=== PATIENT | female | born 1990 | race Caucasian/White ===

== ENCOUNTER 2023-04-24 20:00 | Emergency (ER) | payer BC, MEDICAID ==
[2023-04-24] MEDS ORDERED: Acetaminophen/HYDROcodone 325-5 MG Tab PO ONE (20:01)
[2023-04-24] MEDS ORDERED: Ketorolac 30 MG/ML SDV IM ONE (20:27)
[2023-04-24] MEDS ORDERED: hydrOXYzine HCl 50 MG/ML SDV IM ONE (20:27)
[2023-04-24 20:45] LABS: BILIRUBIN,URINE NEGATIVE (NEGATIVE); GLUCOSE,URINE NORMAL (NORMAL); KETONES,URINE NEGATIVE (NEGATIVE); LEUKOCYTE ESTERASE,URINE NEGATIVE (NEGATIVE); NITRITE,URINE NEGATIVE (NEGATIVE); OCCULT BLOOD,URINE NEGATIVE (NEGATIVE); PROTEIN,URINE NEGATIVE (NEGATIVE); UROBILINOGEN,URINE NORMAL (NEGATIVE)
[2023-04-24 20:56] LABS: BASOPHILS PERCENT AUTO 0.3 % (0.2-1.5); HEMATOCRIT 37.1 % (34.2-48.2); HEMOGLOBIN 12.3 g/dL (11.4-15.5); LYMPHOCYTES ABSOLUTE AUTO 1.4 x10-3/uL (1.0-4.4); LYMPHOCYTES PERCENT AUTO 22.4 % (18.4-52.1); MEAN CORPUSCULAR HGB CONC 33.2 g/dL (31.9-34.8); MEAN CORPUSCULAR VOLUME 75.1 fL (76.7-100.5); MEAN PLATELET VOLUME 6.9 fL (7.1-12.4); MONOCYTES ABSOLUTE AUTO 0.3 x10-3/uL (0.3-1.0); MONOCYTES PERCENT AUTO 5.6 % (4.4-15.7); NEUTROPHILS ABSOLUTE AUTO 4.4 x10-3/uL (1.5-6.3); NEUTROPHILS PERCENT AUTO 71.7 % (30.8-76.2); PLATELET COUNT,PLT 284 x10(3)uL (151-488); RED BLOOD CELL COUNT 4.94 x10(6)uL (3.60-5.20); RED CELL DISTRIBUTION WIDTH 16.5 % (12.3-16.5); WHITE BLOOD CELL COUNT,WBC 6.1 x10-3/uL (3.0-10.3)
[2023-04-24 20:57] LABS: APPEARANCE,URINE CLEAR (CLEAR); BACTERIA,URINE RARE (NS); COLOR,URINE YELLOW (YELLOW); RBC,URINE 0-5 (0-5); SQUAMOUS EPITHELIAL CELLS,UR OCCASIONAL (NS,R,O); WBC,URINE 0-5 (0-5)
[2023-04-24 20:57] LABS: BLOOD UREA NITROGEN,BUN 18 mg/dL (7-18); CALCIUM 9.1 mg/dL (8.6-10.2); CARBON DIOXIDE,CO2 26 mmol/L (21-32); CHLORIDE,CL 104 mmol/L (100-110); ESTIMATED GFR 77 mL/min (>60); GLUCOSE RANDOM 94 mg/dL (80-116); POTASSIUM,K 3.8 mmol/L (3.5-5.3); SODIUM,NA 140 mmol/L (135-145)
[2023-04-24 21:03] LABS: A/G RATIO 1.2; ALANINE AMINOTRANSFERASE,ALT 87 U/L (12-36); ALBUMIN 3.9 g/dL (3.5-5.2); ALKALINE PHOSPHATASE 86 IU/L (56-112); ASPARTATE AMNIOTRANSFERASE,AST 74 IU/L (5-25); BILIRUBIN TOTAL 0.3 mg/dL (0.1-1.3); PROTEIN TOTAL,TP 7.1 g/dL (6.0-8.0)
[2023-04-24] MEDS ORDERED: Morphine 10 MG/ML SDV IM ONE (21:27)
[2023-04-24] MEDS ORDERED: Sodium Chloride 0.9% 1,000 ML IV SCH (22:00)
[2023-04-24] MEDS ORDERED: fentaNYL 100 MCG/2 ML SDV IVPUSH ONE (22:58)
== END 2023-04-24 23:17 | disposition home or self-care (01) ==
LOC: FB.ED 20:00
DX: R10.32 Left lower quadrant pain (principal); Z88.0 Allergy status to penicillin; Z88.1 Allergy status to other antibiotic agents
CPT/HCPCS: 36415; 74176; 80053; 81001; 85025; 96361; 96372; 96374; 99284-25; A9270-GY; J1885; J2270; J3010; J3410; J7030

== ENCOUNTER 2025-08-12 00:23 | Emergency (ER) | payer MEDICAID ==
[2025-08-12] MEDS ORDERED: Sodium Chloride 0.9% 10 ML Syringe FLUSH PRN (00:34)
[2025-08-12 00:57] LABS: BASOPHILS ABSOLUTE AUTO 0.0 x10-3/uL (0.0-0.1); BASOPHILS PERCENT AUTO 0.5 % (0.2-1.5); EOSINOPHILS ABSOLUTE AUTO 0.0 x10-3/uL (0.0-0.8); EOSINOPHILS PERCENT AUTO 0.0 % (0.6-8.1); LYMPHOCYTES ABSOLUTE AUTO 2.5 x10-3/uL (1.0-4.4); LYMPHOCYTES PERCENT AUTO 35.1 % (18.4-52.1); MEAN PLATELET VOLUME 6.9 fL (7.1-12.4); MONOCYTES ABSOLUTE AUTO 0.5 x10-3/uL (0.3-1.0); MONOCYTES PERCENT AUTO 7.2 % (4.4-15.7); NEUTROPHILS ABSOLUTE AUTO 4.0 x10-3/uL (1.5-6.3); NEUTROPHILS PERCENT AUTO 57.2 % (30.8-76.2); PLATELET COUNT,PLT 288 x10(3)uL (151-488); RED BLOOD CELL COUNT 4.43 x10(6)uL (3.60-5.20); RED CELL DISTRIBUTION WIDTH 13.7 % (12.3-16.5); WHITE BLOOD CELL COUNT,WBC 7.0 x10-3/uL (3.0-10.3)
[2025-08-12 01:00] LABS: GLUCOSE,URINE NORMAL (NORMAL); OCCULT BLOOD,URINE NEGATIVE (NEGATIVE)
[2025-08-12 01:01] LABS: BLOOD UREA NITROGEN,BUN 21 mg/dL (7-18); CARBON DIOXIDE,CO2 30 mmol/L (21-32); CHLORIDE,CL 103 mmol/L (100-110); CREATININE 0.9 mg/dL (0.55-1.02); ESTIMATED GFR 87 mL/min (>60); GLUCOSE RANDOM 81 mg/dL (80-116); POTASSIUM,K 4.1 mmol/L (3.5-5.3); SODIUM,NA 140 mmol/L (135-145)
[2025-08-12] MEDS: Ketorolac 30 MG/ML SDV IVPUSH ONE (01:03)
[2025-08-12 01:04] LABS: APPEARANCE,URINE CLEAR (CLEAR); SQUAMOUS EPITHELIAL CELLS,UR RARE (NS,R,O)
[2025-08-12] MEDS: Prochlorperazine 10 MG/2 ML SDV IVPUSH ONE (01:06)
== END 2025-08-12 02:01 | disposition home or self-care (01) ==
LOC: FB.ED 00:23 → SUPCPDRO 00:23 → FB.ED 02:01
DX: N20.0 Calculus of kidney (principal); Z86.16 Personal history of COVID-19; Z90.49 Acquired absence of other specified parts of digestive tract; Z79.899 Other long term (current) drug therapy; Z88.0 Allergy status to penicillin; Z88.1 Allergy status to other antibiotic agents; Z91.030 Bee allergy status; Z91.040 Latex allergy status; Z88.5 Allergy status to narcotic agent
CPT/HCPCS: 74176; 80048; 81001; 85025; 96361; 96374; 96375; 99284; 99284-25; J0780; J1885; J2270; J7030

== ENCOUNTER 2025-08-19 21:59 | Emergency (ER) | payer MEDICAID | END 2025-08-19 22:29 | disposition left against medical advice (07) | LOC: FB.ED 21:59 | DX: G89.29 Other chronic pain (principal); R10.12 Left upper quadrant pain; Z88.0 Allergy status to penicillin; Z88.1 Allergy status to other antibiotic agents; Z91.030 Bee allergy status; Z91.040 Latex allergy status; Z88.8 Allergy status to other drugs, medicaments and biological substances; Z79.899 Other long term (current) drug therapy; Z90.49 Acquired absence of other specified parts of digestive tract; Z90.710 Acquired absence of both cervix and uterus; Z86.16 Personal history of COVID-19 | CPT/HCPCS: 99283 ==

== ENCOUNTER 2025-09-01 21:24 | Emergency (ER) | payer MEDICAID ==
[2025-09-01] MEDS: Ketorolac 30 MG/ML SDV IM STA (22:05)
[2025-09-01 22:17] LABS: BASOPHILS ABSOLUTE AUTO 0.0 x10-3/uL (0.0-0.1); BASOPHILS PERCENT AUTO 0.6 % (0.2-1.5); EOSINOPHILS ABSOLUTE AUTO 0.0 x10-3/uL (0.0-0.8); EOSINOPHILS PERCENT AUTO 0.1 % (0.6-8.1); LYMPHOCYTES ABSOLUTE AUTO 1.6 x10-3/uL (1.0-4.4); LYMPHOCYTES PERCENT AUTO 33.1 % (18.4-52.1); MEAN PLATELET VOLUME 7.0 fL (7.1-12.4); MONOCYTES ABSOLUTE AUTO 0.3 x10-3/uL (0.3-1.0); MONOCYTES PERCENT AUTO 5.6 % (4.4-15.7); NEUTROPHILS ABSOLUTE AUTO 2.9 x10-3/uL (1.5-6.3); NEUTROPHILS PERCENT AUTO 60.6 % (30.8-76.2); PLATELET COUNT,PLT 232 x10(3)uL (151-488); RED BLOOD CELL COUNT 4.13 x10(6)uL (3.60-5.20); RED CELL DISTRIBUTION WIDTH 13.1 % (12.3-16.5); WHITE BLOOD CELL COUNT,WBC 4.8 x10-3/uL (3.0-10.3)
[2025-09-01 22:25] LABS: BLOOD UREA NITROGEN,BUN 16 mg/dL (7-18); CARBON DIOXIDE,CO2 30 mmol/L (21-32); CHLORIDE,CL 106 mmol/L (100-110); CREATININE 0.9 mg/dL (0.55-1.02); EST CRCL DRUG DOSING (CG) 79.25 mL/min; ESTIMATED GFR 86 mL/min (>60); GLUCOSE RANDOM 100 mg/dL (80-116); POTASSIUM,K 3.7 mmol/L (3.5-5.3); SODIUM,NA 143 mmol/L (135-145)
[2025-09-01 22:56] LABS: GLUCOSE,URINE NORMAL (NORMAL); OCCULT BLOOD,URINE NEGATIVE (NEGATIVE)
[2025-09-01 22:58] LABS: APPEARANCE,URINE CLEAR (CLEAR)
[2025-09-01 23:07] LABS: AMPHETAMINES SCREEN, URINE NEGATIVE (NEGATIVE); METHADONE SCREEN, URINE NEGATIVE (NEGATIVE); METHAMPHETAMINE SCREEN, URINE NEGATIVE (NEGATIVE); OXYCODONE SCREEN,URINE NEGATIVE (NEGATIVE)
[2025-09-01 23:08] LABS: BUPRENORPHINE SCREEN,URINE NEGATIVE (NEGATIVE)
== END 2025-09-01 23:06 | disposition home or self-care (01) ==
LOC: FB.ED 21:24
DX: K59.00 Constipation, unspecified (principal); Z88.0 Allergy status to penicillin; Z91.030 Bee allergy status; Z91.040 Latex allergy status; Z88.1 Allergy status to other antibiotic agents; Z79.899 Other long term (current) drug therapy; Z86.16 Personal history of COVID-19; Z90.49 Acquired absence of other specified parts of digestive tract
CPT/HCPCS: 36415; 74176; 80048; 80307; 81003; 85025; 96374; 99284; J1885

== ENCOUNTER 2025-09-15 19:06 | Emergency (ER) | payer MEDICAID | END 2025-09-15 19:35 | disposition left against medical advice (07) | LOC: FB.ED 19:06 | DX: Z53.21 Procedure and treatment not carried out due to patient leaving prior to being seen by health care provider (principal) ==